=== PATIENT | female | born 1975 | race Two or more races ===

== ENCOUNTER 2020-09-06 15:46 | Inpatient (IN) | payer OTHER ==
[2020-09-06 17:09] VITALS: BMI 26.9
[2020-09-06] MEDS ORDERED: ONDANSETRON *ODT* 4 MG TABLET SL PRN (18:19)
[2020-09-06] MEDS ORDERED: MAGNESIUM HYDROX 2400MG/30ML ORAL SUSPENSION 30 ML CUP PO PRN (18:19)
[2020-09-06] MEDS ORDERED: MAG HYDROX/AL HYDROX/SIMETH 30 ML UNIT-DOSE CUP PO PRN (18:19)
[2020-09-06] MEDS ORDERED: BISMUTH SUBSALICYLATE 524 MG/30 ML PO PRN (18:19)
[2020-09-06] MEDS ORDERED: MENTHOL/PHENOL 1 EACH UD MM PRN (18:19)
[2020-09-06] MEDS ORDERED: MAGNESIUM CITRATE 300 ML BOTTLE PO PRN (18:19)
[2020-09-06] MEDS ORDERED: NICOTINE POLACRILEX 2 MG GUM BUC PRN (18:19)
[2020-09-06] MEDS ORDERED: ACETAMINOPHEN 325 MG TABLET (FP) PO PRN (18:19)
[2020-09-06] MEDS ORDERED: METHADONE HCL 10 MG TABLET (FOR DETOX USE ONLY) ONE (18:35)
[2020-09-06] MEDS ORDERED: METHADONE HCL 10 MG TABLET (FOR DETOX USE ONLY) PO ONE ×2 (18:45→20:00)
[2020-09-06] MEDS: cloNIDine HCL 0.1 MG TABLET PO PRN (20:28)
[2020-09-06] MEDS: BACITRACIN 15 GM TUBE TOPICAL OINTMENT TP SCH (23:00)
[2020-09-06] MEDS: THIAMINE HCL 100 MG TABLET (FP) PO SCH (23:01)
[2020-09-06] MEDS: TOLNAFTATE 1% CREAM 15 GM TUBE TP SCH (23:01)
[2020-09-06] MEDS: MELATONIN 5 MG TABLETS PO SCH (23:01)
[2020-09-07] MEDS ORDERED: METHADONE HCL 10 MG TABLET (FOR DETOX USE ONLY) ONE (09:14)
[2020-09-07] MEDS ORDERED: METHADONE HCL 5 MG TABLET (FOR DETOX USE ONLY) ONE (09:14)
[2020-09-07] MEDS: BACITRACIN 15 GM TUBE TOPICAL OINTMENT TP SCH ×2 (09:41→23:44)
[2020-09-07] MEDS: TOLNAFTATE 1% CREAM 15 GM TUBE TP SCH ×2 (09:41→23:45)
[2020-09-07] MEDS: IBUPROFEN 400 MG TABLET (FP) PO PRN ×2 (09:41→17:46)
[2020-09-07] MEDS: METHOCARBAMOL 500 MG TABLET PO PRN ×2 (09:41→17:45)
[2020-09-07] MEDS: PRENATAL VITAMINS W/ FOLIC ACID TABLET (FP) PO SCH (09:42)
[2020-09-07] MEDS: NICOTINE 14 MG/24 HOURS TOPICAL PATCH TD SCH (09:42)
[2020-09-07] MEDS ORDERED: METHADONE (DETOX) 20 MG, METHADONE (DETOX) 5 MG PO ONE (10:00)
[2020-09-07 10:16] LABS: HEMATOCRIT 34.6 % (32.4-45.2); HEMOGLOBIN 11.4 GM/dL (10.7-15.3); MCHC 32.8 g/dl (32.0-36.0); MEAN CELL VOLUME 85.2 fl (80-96); MEAN PLT VOLUME 7.8 fl (7.5-11.1); PLATELET COUNT 434 10^3/uL (134-434); RBC 4.06 M/mm3 (3.60-5.2); RDW 14.3 % (11.6-15.6); WHITE BLOOD COUNT 7.8 K/mm3 (4.0-10.0)
[2020-09-07 10:22] LABS: CALCIUM 8.7 mg/dL (8.5-10.1)
[2020-09-07 10:23] LABS: ALBUMIN 3.2 g/dl (3.4-5.0); BLOOD UREA NITROGEN 10.3 mg/dL (7-18)
[2020-09-07 10:26] LABS: CREATININE 0.7 mg/dL (0.55-1.3)
[2020-09-07 10:28] LABS: TOT PROT 6.3 g/dl (6.4-8.2)
[2020-09-07 10:29] LABS: BILIRUBIN,TOTAL 0.6 mg/dL (0.2-1)
[2020-09-07] MEDS: cloNIDine HCL 0.1 MG TABLET PO PRN (11:14)
[2020-09-07] MEDS: hydrOXYzine PAMOATE 25 MG CAPSULE (FP) PO PRN (13:32)
[2020-09-07] MEDS ORDERED: POTASSIUM CHLORIDE TABS 20 MEQ TABLET.ER (FP) PO ONE (15:18)
[2020-09-07] MEDS: MELATONIN 5 MG TABLETS PO SCH (23:45)
[2020-09-07] MEDS: THIAMINE HCL 100 MG TABLET (FP) PO SCH (23:45)
[2020-09-08] MEDS: METHOCARBAMOL 500 MG TABLET PO PRN ×2 (08:03→17:38)
[2020-09-08] MEDS: IBUPROFEN 400 MG TABLET (FP) PO PRN ×2 (08:03→17:38)
[2020-09-08] MEDS: hydrOXYzine PAMOATE 25 MG CAPSULE (FP) PO PRN ×3 (08:03→20:53)
[2020-09-08] MEDS: BACITRACIN 15 GM TUBE TOPICAL OINTMENT TP SCH ×2 (09:26→22:41)
[2020-09-08] MEDS: PRENATAL VITAMINS W/ FOLIC ACID TABLET (FP) PO SCH (09:27)
[2020-09-08] MEDS: NICOTINE 14 MG/24 HOURS TOPICAL PATCH TD SCH (09:27)
[2020-09-08] MEDS: TOLNAFTATE 1% CREAM 15 GM TUBE TP SCH ×2 (09:27→23:10)
[2020-09-08] MEDS: cloNIDine HCL 0.1 MG TABLET PO PRN ×2 (09:28→20:54)
[2020-09-08] MEDS ORDERED: POTASSIUM CHLORIDE TABS 20 MEQ TABLET.ER (FP) PO SCH (10:00)
[2020-09-08] MEDS ORDERED: METHADONE HCL 10 MG TABLET (FOR DETOX USE ONLY) PO ONE (10:00)
[2020-09-08] MEDS ORDERED: DICYCLOMINE HCL 10 MG CAPSULE PO PRN (14:25)
[2020-09-08] MEDS: ACETAMINOPHEN 325 MG TABLET (FP) PO PRN (14:27)
[2020-09-08] MEDS: THIAMINE HCL 100 MG TABLET (FP) PO SCH (22:41)
[2020-09-08] MEDS: MELATONIN 5 MG TABLETS PO SCH (22:41)
[2020-09-09] MEDS ORDERED: METHADONE HCL 10 MG TABLET (FOR DETOX USE ONLY) ONE (08:43)
[2020-09-09] MEDS ORDERED: METHADONE HCL 5 MG TABLET (FOR DETOX USE ONLY) ONE (08:44)
[2020-09-09] MEDS ORDERED: METHADONE (DETOX) 10 MG, METHADONE (DETOX) 5 MG PO ONE (10:00)
[2020-09-09] MEDS: TOLNAFTATE 1% CREAM 15 GM TUBE TP SCH ×2 (10:30→21:07)
[2020-09-09] MEDS: NICOTINE 14 MG/24 HOURS TOPICAL PATCH TD SCH (10:30)
[2020-09-09] MEDS: BACITRACIN 15 GM TUBE TOPICAL OINTMENT TP SCH (10:39)
[2020-09-09] MEDS: PRENATAL VITAMINS W/ FOLIC ACID TABLET (FP) PO SCH (10:40)
[2020-09-09] MEDS: METHOCARBAMOL 500 MG TABLET PO PRN (10:40)
[2020-09-09] MEDS: hydrOXYzine PAMOATE 25 MG CAPSULE (FP) PO PRN (10:40)
[2020-09-09] MEDS: IBUPROFEN 400 MG TABLET (FP) PO PRN (11:22)
[2020-09-09] MEDS: diazePAM 5 MG TABLET PO PRN ×3 (12:40→21:07)
[2020-09-09] MEDS: ACETAMINOPHEN 325 MG TABLET (FP) PO PRN (16:52)
[2020-09-09] MEDS ORDERED: BACITRACIN 0.9 GM PACKET ONE (21:01)
[2020-09-09] MEDS: THIAMINE HCL 100 MG TABLET (FP) PO SCH (21:07)
[2020-09-09] MEDS: MELATONIN 5 MG TABLETS PO SCH (21:07)
[2020-09-09] MEDS: BACITRACIN 0.9 GM PACKET TP SCH (21:10)
[2020-09-10] MEDS: IBUPROFEN 600 MG TABLET (FP) PO PRN ×2 (00:44→10:07)
[2020-09-10] MEDS: diazePAM 5 MG TABLET PO PRN ×5 (06:07→22:36)
[2020-09-10] MEDS: hydrOXYzine PAMOATE 25 MG CAPSULE (FP) PO PRN ×2 (06:08→14:30)
[2020-09-10] MEDS: METHOCARBAMOL 750 MG TAB PO PRN ×3 (06:09→22:39)
[2020-09-10] MEDS: ACETAMINOPHEN 325 MG TABLET (FP) PO PRN (06:09)
[2020-09-10] MEDS ORDERED: METHADONE HCL 10 MG TABLET (FOR DETOX USE ONLY) PO ONE (10:00)
[2020-09-10] MEDS: TOLNAFTATE 1% CREAM 15 GM TUBE TP SCH ×2 (10:04→22:36)
[2020-09-10] MEDS: NICOTINE 14 MG/24 HOURS TOPICAL PATCH TD SCH (10:04)
[2020-09-10] MEDS: BACITRACIN 0.9 GM PACKET TP SCH ×2 (10:06→22:36)
[2020-09-10] MEDS: PRENATAL VITAMINS W/ FOLIC ACID TABLET (FP) PO SCH (10:08)
[2020-09-10] MEDS ORDERED: hydrOXYzine PAMOATE 50 MG CAPSULE (FP) PO ONE (19:43)
[2020-09-10] MEDS: MELATONIN 5 MG TABLETS PO SCH (22:36)
[2020-09-10] MEDS: THIAMINE HCL 100 MG TABLET (FP) PO SCH (22:36)
[2020-09-11] MEDS: diazePAM 5 MG TABLET PO PRN ×2 (02:44→09:17)
[2020-09-11] MEDS: ACETAMINOPHEN 325 MG TABLET (FP) PO PRN (02:44)
[2020-09-11] MEDS ORDERED: METHADONE HCL 5 MG TABLET (FOR DETOX USE ONLY) PO ONE (06:00)
[2020-09-11] MEDS: hydrOXYzine PAMOATE 25 MG CAPSULE (FP) PO PRN (06:27)
[2020-09-11] MEDS: IBUPROFEN 600 MG TABLET (FP) PO PRN (06:28)
[2020-09-11] MEDS: METHOCARBAMOL 750 MG TAB PO PRN (06:28)
[2020-09-11] MEDS: PRENATAL VITAMINS W/ FOLIC ACID TABLET (FP) PO SCH (09:17)
[2020-09-11] MEDS: NICOTINE 14 MG/24 HOURS TOPICAL PATCH TD SCH (09:17)
[2020-09-11] MEDS: BACITRACIN 0.9 GM PACKET TP SCH (09:17)
[2020-09-11] MEDS: TOLNAFTATE 1% CREAM 15 GM TUBE TP SCH (09:17)
[2020-09-11 09:37] VITALS: PULSE 76; TEMP 96.9
[2020-09-11 13:18] VITALS: BP 117/69
== END 2020-09-11 13:36 | disposition home or self-care (01) | DRG 773 ==
LOC: YASAS 15:46 → Y3N 18:29
PROVIDERS: ADMIT Allergy & Immunology; ATTEND Allergy & Immunology
PROC: HZ2ZZZZ Detoxification Services for Substance Abuse Treatment (ICD-10-PCS; principal; 2020-09-06)
DX: F11.23 Opioid dependence with withdrawal (principal); F14.20 Cocaine dependence, uncomplicated; F12.20 Cannabis dependence, uncomplicated; F17.210 Nicotine dependence, cigarettes, uncomplicated; E87.6 Hypokalemia; B35.3 Tinea pedis
CPT/HCPCS: 36415; 80053; 81025; 84132; 85027; 86780; 93005; 93010; C9803; J0735; Q0162; U0003; U0005

== ENCOUNTER 2020-11-30 18:04 | Inpatient (IN) | payer OTHER ==
[2020-11-30 18:44] VITALS: BMI 23.9
[2020-11-30] MEDS ORDERED: MAG HYDROX/AL HYDROX/SIMETH 30 ML UNIT-DOSE CUP PO PRN (19:47)
[2020-11-30] MEDS ORDERED: BISMUTH SUBSALICYLATE 524 MG/30 ML PO PRN (19:47)
[2020-11-30] MEDS ORDERED: ACETAMINOPHEN 325 MG TABLET (FP) PO PRN (19:47)
[2020-11-30] MEDS ORDERED: MENTHOL/PHENOL 1 EACH UD MM PRN (19:47)
[2020-11-30] MEDS ORDERED: IBUPROFEN 400 MG TABLET (FP) PO PRN (19:47)
[2020-11-30] MEDS ORDERED: ONDANSETRON *ODT* 4 MG TABLET SL PRN (19:47)
[2020-11-30] MEDS ORDERED: MAGNESIUM CITRATE 300 ML BOTTLE PO PRN (19:47)
[2020-11-30] MEDS ORDERED: MAGNESIUM HYDROX 2400MG/30ML ORAL SUSPENSION 30 ML CUP PO PRN (19:47)
[2020-11-30] MEDS ORDERED: NICOTINE POLACRILEX 2 MG GUM BUC PRN (19:47)
[2020-11-30] MEDS ORDERED: methaDONE HCL 10 MG TABLET (FOR DETOX USE ONLY) ONE (20:45)
[2020-11-30] MEDS ORDERED: methaDONE HCL 10 MG TABLET (FOR DETOX USE ONLY) PO ONE (20:45)
[2020-11-30] MEDS: MELATONIN 5 MG TABLETS PO SCH (23:25)
[2020-11-30] MEDS: THIAMINE HCL 100 MG TABLET (FP) PO SCH (23:25)
[2020-12-01] MEDS ORDERED: methaDONE HCL 10 MG TABLET (FOR DETOX USE ONLY) ONE (09:28)
[2020-12-01] MEDS: NICOTINE 14 MG/24 HOURS TOPICAL PATCH TD SCH (10:47)
[2020-12-01] MEDS: ACETAMINOPHEN 325 MG TABLET (FP) PO PRN (10:49)
[2020-12-01] MEDS: hydrOXYzine PAMOATE 25 MG CAPSULE (FP) PO PRN ×3 (10:50→21:52)
[2020-12-01] MEDS: cloNIDine HCL 0.1 MG TABLET PO PRN ×3 (10:50→21:53)
[2020-12-01] MEDS: PRENATAL VITAMINS W/ FOLIC ACID TABLET (FP) PO SCH (10:50)
[2020-12-01] MEDS: METHOCARBAMOL 500 MG TABLET PO PRN ×2 (10:50→18:04)
[2020-12-01 16:03] LABS: HEMATOCRIT 34.4 % (32.4-45.2); HEMOGLOBIN 11.4 GM/dL (10.7-15.3); MCH 27.5 pg (25.7-33.7); MCHC 33.1 g/dl (32.0-36.0); MEAN CELL VOLUME 82.9 fl (80-96); MEAN PLT VOLUME 7.3 fl (7.5-11.1); PLATELET COUNT 407 10^3/uL (134-434); RBC 4.15 M/mm3 (3.60-5.2); RDW 13.9 % (11.6-15.6); WHITE BLOOD COUNT 5.1 K/mm3 (4.0-10.0)
[2020-12-01 16:52] LABS: CALCIUM 8.8 mg/dL (8.5-10.1)
[2020-12-01 16:53] LABS: ALBUMIN 3.2 g/dl (3.4-5.0); BLOOD UREA NITROGEN 9.1 mg/dL (7-18)
[2020-12-01 16:55] LABS: BILIRUBIN,TOTAL 0.4 mg/dL (0.2-1); TOT PROT 6.5 g/dl (6.4-8.2)
[2020-12-01 16:56] LABS: CREATININE 0.8 mg/dL (0.55-1.3)
[2020-12-01] MEDS: THIAMINE HCL 100 MG TABLET (FP) PO SCH (21:53)
[2020-12-01] MEDS: MELATONIN 5 MG TABLETS PO SCH (23:43)
[2020-12-02] MEDS: hydrOXYzine PAMOATE 25 MG CAPSULE (FP) PO PRN ×2 (06:26→10:15)
[2020-12-02] MEDS ORDERED: methaDONE HCL 10 MG TABLET (FOR DETOX USE ONLY) PO ONE (10:00)
[2020-12-02] MEDS: METHOCARBAMOL 500 MG TABLET PO PRN ×2 (10:15→18:35)
[2020-12-02] MEDS: PRENATAL VITAMINS W/ FOLIC ACID TABLET (FP) PO SCH (10:17)
[2020-12-02] MEDS: NICOTINE 14 MG/24 HOURS TOPICAL PATCH TD SCH (10:17)
[2020-12-02] MEDS: diazePAM 5 MG TABLET PO PRN ×3 (13:02→22:17)
[2020-12-02] MEDS: traZODone HCL 50 MG TABLET (FP) PO SCH (22:16)
[2020-12-02] MEDS: THIAMINE HCL 100 MG TABLET (FP) PO SCH (22:16)
[2020-12-02] MEDS: MELATONIN 5 MG TABLETS PO SCH (22:17)
[2020-12-03] MEDS ORDERED: methaDONE HCL 10 MG TABLET (FOR DETOX USE ONLY) ONE (09:41)
[2020-12-03] MEDS: PRENATAL VITAMINS W/ FOLIC ACID TABLET (FP) PO SCH (10:18)
[2020-12-03] MEDS: NICOTINE 14 MG/24 HOURS TOPICAL PATCH TD SCH (10:20)
[2020-12-03] MEDS: diazePAM 5 MG TABLET PO PRN ×3 (10:21→22:37)
[2020-12-03] MEDS: ACETAMINOPHEN 325 MG TABLET (FP) PO PRN ×2 (10:21→22:35)
[2020-12-03] MEDS: METHOCARBAMOL 500 MG TABLET PO PRN (15:39)
[2020-12-03] MEDS: traZODone HCL 50 MG TABLET (FP) PO SCH (22:34)
[2020-12-03] MEDS: THIAMINE HCL 100 MG TABLET (FP) PO SCH (22:34)
[2020-12-03] MEDS: MELATONIN 5 MG TABLETS PO SCH (22:34)
[2020-12-04] MEDS: METHOCARBAMOL 500 MG TABLET PO PRN (05:34)
[2020-12-04] MEDS: diazePAM 5 MG TABLET PO PRN ×4 (05:34→20:00)
[2020-12-04] MEDS ORDERED: methaDONE HCL 10 MG TABLET (FOR DETOX USE ONLY) PO ONE (10:00)
[2020-12-04] MEDS: PRENATAL VITAMINS W/ FOLIC ACID TABLET (FP) PO SCH (10:43)
[2020-12-04] MEDS: NICOTINE 14 MG/24 HOURS TOPICAL PATCH TD SCH (10:43)
[2020-12-04] MEDS: hydrOXYzine PAMOATE 25 MG CAPSULE (FP) PO PRN (20:03)
[2020-12-04] MEDS: MELATONIN 5 MG TABLETS PO SCH (22:19)
[2020-12-04] MEDS: THIAMINE HCL 100 MG TABLET (FP) PO SCH (22:19)
[2020-12-04] MEDS: traZODone HCL 50 MG TABLET (FP) PO SCH (22:19)
[2020-12-05 09:44] VITALS: BP 121/72; PULSE 57; TEMP 96.9
[2020-12-05] MEDS: NICOTINE 14 MG/24 HOURS TOPICAL PATCH TD SCH (11:04)
[2020-12-05] MEDS: PRENATAL VITAMINS W/ FOLIC ACID TABLET (FP) PO SCH (11:07)
== END 2020-12-05 10:26 | disposition home or self-care (01) | DRG 773 ==
LOC: YASAS 18:04 → Y3N 20:34
PROVIDERS: ADMIT Allergy & Immunology; ATTEND Allergy & Immunology
PROC: HZ2ZZZZ Detoxification Services for Substance Abuse Treatment (ICD-10-PCS; principal; 2020-11-30)
DX: F11.23 Opioid dependence with withdrawal (principal); F14.20 Cocaine dependence, uncomplicated; F17.210 Nicotine dependence, cigarettes, uncomplicated; F19.24 Other psychoactive substance dependence with psychoactive substance-induced mood disorder; F41.9 Anxiety disorder, unspecified; G47.00 Insomnia, unspecified; B35.3 Tinea pedis; Z86.59 Personal history of other mental and behavioral disorders; Z56.0 Unemployment, unspecified; Z59.0 Homelessness
CPT/HCPCS: 36415; 80053; 81025; 85027; 86780; 93005; 93010; C9803; J0735; U0003; U0005